=== PATIENT | male | born 1980 | race African-American/Black ===

== ENCOUNTER 2017-10-06 00:19 | Emergency (ER) | payer BC, SELFPAY | END 2017-10-06 00:59 | disposition home or self-care (01) | LOC: ERS 00:19 | DX: S90.562A Insect bite (nonvenomous), left ankle, initial encounter (principal); S90.561A Insect bite (nonvenomous), right ankle, initial encounter; F17.210 Nicotine dependence, cigarettes, uncomplicated; Z71.6 Tobacco abuse counseling; W57.XXXA Bitten or stung by nonvenomous insect and other nonvenomous arthropods, initial encounter | CPT/HCPCS: 99406 ==

== ENCOUNTER 2018-11-22 04:13 | Emergency (ER) | payer SELFPAY ==
[2018-11-22] MEDS ORDERED: Triple Antibiotic Oint 1 GM Packet ONE (04:38)
== END 2018-11-22 04:41 | disposition home or self-care (01) ==
LOC: ERS 04:13
DX: S00.01XA Abrasion of scalp, initial encounter (principal); F17.210 Nicotine dependence, cigarettes, uncomplicated; W22.8XXA Striking against or struck by other objects, initial encounter
CPT/HCPCS: 99283

== ENCOUNTER 2018-11-25 08:46 | Emergency (ER) | payer SELFPAY ==
[2018-11-25] MEDS ORDERED: Cephalexin 250 MG CAP ONE (09:07)
[2018-11-25] MEDS ORDERED: Adacel (T-DAP) 0.5 ML SYRINGE ONE (09:07)
== END 2018-11-25 10:36 | disposition home or self-care (01) ==
LOC: ERS 08:46
DX: S00.01XA Abrasion of scalp, initial encounter (principal); L03.811 Cellulitis of head [any part, except face]; I10 Essential (primary) hypertension; F17.210 Nicotine dependence, cigarettes, uncomplicated; Z71.6 Tobacco abuse counseling; Y04.0XXA Assault by unarmed brawl or fight, initial encounter
CPT/HCPCS: 90715; 99406

== ENCOUNTER 2020-01-21 17:27 | Emergency (ER) | payer SELFPAY | END 2020-01-21 17:54 | disposition home or self-care (01) | LOC: ERS 17:27 | DX: S21.152A Open bite of left front wall of thorax without penetration into thoracic cavity, initial encounter (principal); F16.10 Hallucinogen abuse, uncomplicated; F10.10 Alcohol abuse, uncomplicated; R55 Syncope and collapse; I10 Essential (primary) hypertension; F17.210 Nicotine dependence, cigarettes, uncomplicated; W50.3XXA Accidental bite by another person, initial encounter | CPT/HCPCS: 99284 ==

== ENCOUNTER 2020-05-10 16:32 | Emergency (ER) | payer SELFPAY ==
[2020-05-10] MEDS ORDERED: Ziprasidone 20 MG CAP ONE (17:13)
[2020-05-10 17:31] LABS: #Basophils 0.1 thou/uL (0.0-0.2); #Eosinphils 0.2 thou/uL (0.0-0.7); #Monocytes 0.7 thou/uL (0.11-0.59); #Neutrophils 3.1 thou/uL (1.40-6.50); %Basophils 1.9 % (0.0-1.0); %Eosinophils 3.8 % (0.0-10.0); %Lymphocytes 32.4 % (21.0-51.0); %Monocytes 11.6 % (0.0-10.0); %Neutrophils 50.2 % (42.0-75.0); Hemoglobin 14.6 g/dL (14.0-18.0); Mean Corpuscular HGB CONC 34.5 g/dL (32.0-36.0); Mean Corpuscular Volume 95.5 fL (78.0-98.0); Mean Platelet Volume 7.2 fL (7.4-10.4); Platelet Count 219 thou/uL (130-400); RBC Distribution Width 12.3 % (11.5-14.5); Red Blood Cell (RBC) Count 4.44 mill/uL (4.70-6.10); White Blood Cell (WBC) Count 6.2 thou/uL (4.8-10.8)
[2020-05-10 17:44] LABS: Acetaminophen Less than 6.0 mcg/mL (10.0-30.0); Alcohol Less than 10 mg/dL (Less than 10); CK (CPK) 404 U/L (30-200); Salicylate Less than 8.0 mg/dL (15.0-30.0)
[2020-05-10 17:46] LABS: ALT (SGPT) 25 U/L (8-55); AST (SGOT) 28 U/L (5-34); Alkaline Phosphatase 92 U/L (40-110); Anion Gap 12 mmol/L (10-20); BUN (Urea Nitrogen) 9 mg/dL (8.9-20.6); Bilirubin, Total 0.6 mg/dL (0.2-1.2); Calc. Creatinine Clearance 0 mL/min (70-130); Calcium 8.9 mg/dL (7.8-10.44); Carbon Dioxide 26 mmol/L (22-29); Chloride 103 mmol/L (98-107); Globulin 3.7 g/dL (2.4-3.5); Glucose 78 mg/dL (70-105); Potassium 4.1 mmol/L (3.5-5.1); Protein, Total 7.7 g/dL (6.0-8.3); Sodium 137 mmol/L (136-145)
[2020-05-10 17:53] LABS: Bilirubin Negative (Negative); Blood, Urine Negative (Negative); Clarity Clear (Clear); Glucose, Urine (Dipstick) Normal (Negative); Ketone, Urine Negative (Negative); Leukocyte Negative Leu/uL (Negative); Nitrite Negative (Negative); Protein, Urine (Dipstick) Negative (Neg-Trace); Specific Gravity, Urine 1.015 (1.002-1.036); Urobilinogen 6 mg/dL (Less than 2); pH, Urine 6.5 (5.0-9.0)
[2020-05-10 18:05] LABS: Cocaine Metabolite Screen Detected (NotDetected); Medtox Reader # READER 4; Phencyclidine (PCP) Detected (NotDetected)
[2020-05-10 18:06] LABS: Amphetamine Not Detected (NotDetected); Barbiturates Screen Not Detected (NotDetected); Benzodiazepine Screen Detected (NotDetected); Medtox Control Line Valid? VALID (VALID); Methadone Not Detected (NotDetected); Methamphetamine Not Detected (NotDetected); Opiate Screen Not Detected (NotDetected); Oxycodone Screen Not Detected (NotDetected); THC/Cannabinoid Screen Not Detected (NotDetected); Tricyclic Screen Not Detected (NotDetected)
[2020-05-11] MEDS ORDERED: Ziprasidone 20 MG CAP ONE ×2 (16:55→23:39)
[2020-05-12] MEDS ORDERED: Ziprasidone 20 MG CAP ONE ×2 (10:44→18:11)
[2020-05-12] MEDS ORDERED: Acetaminophen 500 MG TAB ONE (18:17)
[2020-05-12] MEDS ORDERED: Ibuprofen 200 MG TAB ONE (22:38)
[2020-05-13] MEDS ORDERED: Ibuprofen 200 MG TAB ONE (08:48)
[2020-05-13] MEDS ORDERED: Ziprasidone 20 MG CAP ONE (08:49)
[2020-05-13] MEDS ORDERED: hydrOXYzine Pamoate 25 mg Capsule ONE ×2 (11:56→11:57)
--- NOTE | 2020-05-16 16:14 | EKG ---
Test Reason : Blood Pressure : / mmHG Vent. Rate : 067 BPM Atrial Rate : 067 BPM P-R Int : 148 ms QRS Dur : 092 ms QT Int : 394 ms P-R-T Axes : 044 022 017 degrees QTc Int : 416 ms Normal sinus rhythm with sinus arrhythmia Normal ECG Confirmed by STEVE MUJICA DO ([id number]), slot editor CARLA DELACRUZ ([id number] on 05/16/2020 4:13:57 PM Referred By: Confirmed By:STEVE MUJICA DO
== END 2020-05-13 12:10 ==
LOC: ERS 16:32
DX: F23 Brief psychotic disorder (principal); F16.10 Hallucinogen abuse, uncomplicated; F13.10 Sedative, hypnotic or anxiolytic abuse, uncomplicated; F14.10 Cocaine abuse, uncomplicated; I10 Essential (primary) hypertension; F17.210 Nicotine dependence, cigarettes, uncomplicated
CPT/HCPCS: 36415; 80053; 80306; 80307; 81003; 82550; 84443; 85025; 93005; Q0177

== ENCOUNTER 2021-03-26 08:49 | Emergency (ER) | payer SELFPAY ==
[2021-03-26] MEDS ORDERED: methylPREDNISolone Sod Succ/PF 125 MG/2 ML VIAL ONE (09:29)
== END 2021-03-26 11:03 | disposition home or self-care (01) ==
LOC: ERS 08:49
DX: T78.1XXA Other adverse food reactions, not elsewhere classified, initial encounter (principal); K13.0 Diseases of lips; K13.70 Unspecified lesions of oral mucosa; I10 Essential (primary) hypertension; F17.210 Nicotine dependence, cigarettes, uncomplicated
CPT/HCPCS: 96374; J2930

== ENCOUNTER 2021-12-16 22:37 | Emergency (ER) | payer SELFPAY ==
[2021-12-16 23:28] LABS: Actual Bicarbonate (HCO3v) 23 mEq/L (22-28); Analyzer IN Cardio ER; Base Excess -1.9 mEq/L (-2.0 to +3.0); Calcium, Ionized (venous) 1.12 mmol/L (1.16-1.32); Chloride (VBG) 105 mmol/L (98-106); Hemoglobin (Hb) 13.7 g/dL (13.2-17.3); Potassium (VBG) 3.57 mmol/L (3.70-5.30); pH (venous) 7.37 (7.32-7.43)
[2021-12-16 23:38] LABS: Hemoglobin 15.6 g/dL (14.0-18.0); Mean Corpuscular HGB CONC 33.3 g/dL (32.0-36.0); Mean Corpuscular Hemoglobin 32.5 pg (27.0-31.0); Mean Corpuscular Volume 97.6 fL (78.0-98.0); Mean Platelet Volume 7.1 fL (7.4-10.4); Platelet Count 183 thou/uL (130-400); RBC Distribution Width 12.1 % (11.5-14.5); Red Blood Cell (RBC) Count 4.79 mill/uL (4.70-6.10); White Blood Cell (WBC) Count 5.8 thou/uL (4.8-10.8)
[2021-12-16 23:57] LABS: Acetaminophen Less than 10.0 mcg/mL (10.0-30.0); Alcohol 177 mg/dL (Less than 10); Salicylate Less than 8.0 mg/dL (15.0-30.0)
[2021-12-16 23:59] LABS: ALT (SGPT) 62 U/L (8-55); AST (SGOT) 62 U/L (5-34); Alkaline Phosphatase 89 U/L (40-110); Anion Gap 18 mmol/L (10-20); BUN (Urea Nitrogen) 6 mg/dL (8.9-20.6); Bilirubin, Total 0.5 mg/dL (0.2-1.2); Calc. Creatinine Clearance 0 mL/min (70-130); Calcium 8.8 mg/dL (7.8-10.44); Carbon Dioxide 20 mmol/L (22-29); Chloride 105 mmol/L (98-107); Estimated GFR 101; Globulin 3.5 g/dL (2.4-3.5); Glucose 80 mg/dL (70-105); Potassium 3.8 mmol/L (3.5-5.1); Protein, Total 7.5 g/dL (6.0-8.3); Sodium 139 mmol/L (136-145)
[2021-12-17 00:12] LABS: Eosinophils 8 % (0-10); Lymphocytes 49 % (21-51); MDiff Complete? YES; Monocytes 12 % (0-10); Neutrophil 29 % (42-75); Reactive Lymphocytes 1 % (0-10)
[2021-12-17 02:20] LABS: Bilirubin Negative (Negative); Blood, Urine Trace (Negative); Clarity Clear (Clear); Glucose, Urine (Dipstick) Normal (Negative); Ketone, Urine Negative (Negative); Leukocyte 250 Leu/uL (Negative); Nitrite Negative (Negative); Protein, Urine (Dipstick) Negative (Neg-Trace); RBC/HPF 0-3 HPF (0-3); Specific Gravity, Urine 1.004 (1.002-1.036); Squamous Epithelial 0-3 HPF (0-3); Urobilinogen Normal mg/dL (Less than 2)
[2021-12-17 02:26] LABS: Bacteria/HPF Rare-Few HPF (None Seen)
[2021-12-17 02:27] LABS: Amphetamine Not Detected (NotDetected); Barbiturates Screen Not Detected (NotDetected); Benzodiazepine Screen Not Detected (NotDetected); Cocaine Metabolite Screen Detected (NotDetected); Methadone Not Detected (NotDetected); Methamphetamine Not Detected (NotDetected); Opiate Screen Not Detected (NotDetected); Oxycodone Screen Not Detected (NotDetected); Phencyclidine (PCP) Detected (NotDetected); THC/Cannabinoid Screen Not Detected (NotDetected); Tricyclic Screen Not Detected (NotDetected)
== END 2021-12-17 06:39 | disposition home or self-care (01) ==
LOC: ERS 22:37
DX: F10.129 Alcohol abuse with intoxication, unspecified (principal); F14.10 Cocaine abuse, uncomplicated; F16.10 Hallucinogen abuse, uncomplicated
CPT/HCPCS: 70450; 71045; 80053; 80306; 80307; 81003; 81015; 82805; 83605; 85025; 93005

== ENCOUNTER 2021-12-19 13:47 | Emergency (ER) | payer OTHER, SELFPAY | END 2021-12-19 14:21 | disposition left against medical advice (07) | LOC: ERS 13:47 | DX: Z04.1 Encounter for examination and observation following transport accident (principal); F19.10 Other psychoactive substance abuse, uncomplicated; I10 Essential (primary) hypertension; F17.210 Nicotine dependence, cigarettes, uncomplicated | CPT/HCPCS: 99284 ==

== ENCOUNTER 2021-12-19 15:02 | Emergency (ER) | payer OTHER, SELFPAY | END 2021-12-19 15:32 | LOC: ERS 15:02 | DX: Z04.1 Encounter for examination and observation following transport accident (principal); F19.10 Other psychoactive substance abuse, uncomplicated; I10 Essential (primary) hypertension; F17.210 Nicotine dependence, cigarettes, uncomplicated | CPT/HCPCS: 99283 ==